=== PATIENT | female | born 1975 | race Caucasian/White ===

== ENCOUNTER 2016-10-03 10:53 | Inpatient (IN) | payer OTHER ==
[2016-10-03 11:53] VITALS: BMI 21.5
--- NOTE | 2016-10-03 12:31 | HP ---
COWS - Scale Resting Pulse: 0= ME 80 or Below Sweatin= Chills/Flushing Restless Observation: 3= Extraneous Movement Pupil Size: 2= Moderately Dilated Bone or Joint Aches: 4=Acute Joint/Muscle Pain Runny Nose/ Eye Tearin= None GI Upset > 30mins: 0= None Tremor Observation: 1= Tremor [place], Not Seen Yawning Observation: 2= >3x During Session Anxiety or Irritability: 2=Irritable/Anxious Goose Flesh Skin: 0=Smooth Skin COWS Score: 15 Admission ROS S - HPI Chief Complaint: DETOX TX FOR HEROIN DEPENDENCE Allergies/Adverse Reactions: Allergies Allergy/AdvReac Type Severity Reaction Status Date / Time Penicillins Allergy Severe Difficulty Verified 10/03/16 13:17 Breathing tree nut Allergy Verified 10/03/16 13:17 History of Present Illness: 41 Y/O FEMALE WITH A HX OF HEROIN AND MARIJUANA DEPENDENCE SEEKING DETOX TX Exam Limitations: No Limitations - Ebola screening Have you traveled outside of the country in the last 21 days: No Have you had contact with anyone from an Ebola affected area: No Have you been sick,other than usual withdrawal symptoms: No Do you have a fever: No - Review of Systems Constitutional: Loss of Appetite, Changes in sleep, Unintentional Wgt. 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).), Tearing, Nose Congestion Respiratory: reports: Shortness of Breath (HX ASTHMA), Wheezing Cardiac: reports: Lightheadedness GI: reports: Constipated, Diarrhea, Nausea, Poor Appetite, Poor Fluid Intake, Vomiting, Abdominal cramping : reports: No Symptoms Reported Musculoskeletal: reports: Back Pain, Joint Pain, Muscle Pain Integumentary: reports: No Symptoms Reported Neuro: reports: Numbness, Tingling, Dizziness Endocrine: reports: No Symptoms Reported Hematology: reports: Anemia (ON TX WITH IRON SUPPLEMENT TWICE A DAY) Psychiatric: reports: Orientated x3, Anxious Other Systems: Reviewed and Negative Patient History - Patient Medical History Hx Anemia: Yes Hx Asthma: Yes Hx Cardiac Disorders: No Hx Hypertension: No Hx Hypercholesterolemia: No HX Cerebrovascular Accident: No Hx Seizures: No Hx Diabetes: No Hx Gastrointestinal Disorders: No Hx Genitourinary Disorders: No Hx Sexually Transmitted Disorders: No Hx Renal Disease (ESRD): No Hx Thyroid Disease: Yes (HYPERACTIVE THYROID AND A NODULE IN THROAT.) Hx Human Immunodeficiency Virus (HIV): No (NEGATIVE HX) Hx Hepatitis C: No Hx Depression: Yes (NO MED) Hx Suicide Attempt: Yes ("SLIT MY WRIST"-01/2012;DENIES CURRENT S/I.) Hx Bipolar Disorder: Yes Hx Schizophrenia: Yes - Patient Surgical History Past Surgical History: No - PPD History Previous Implant?: Yes Documented Results: Negative w/o proof Implanted On Prior R Admission?: No PPD to be Administered?: Yes - Reproductive History Patient is a Female of Child Bearing Age (11 -55 yrs old): Yes Last Menstrual Period: 09/07/16 Patient : No - Smoking Cessation Smoking history: Current some day smoker Have you smoked in the past 12 months: Yes Aproximately how many cigarettes per day: 20 Hx Chewing Tobacco Use: No Initiated information on smoking cessation: Yes 'Breaking Loose' booklet given: 10/03/16 - Substance & Tx. History Hx Alcohol Use: Yes (SOCIAL DRINKER TWCE A YEAR) Hx Substance Use: Yes (HEROIN/MARIJUANA) Substance Use Type: Heroin, Marijuana, Tranquilizers ("TOOK IT LAST TWO DAYS TO RELAX". OTHERWISE DON'T USE BENZOS.) Hx Substance Use Treatment: Yes ([facility] DETOX) - Substances Abused Heroin Route: Inhalation Frequency: Daily Amount used: 1 BUNDLE Age of first use: 38 Date of Last Use: 10/03/16 Marijuana/Hashish Route: Smoking Frequency: 3-6 times per week (3X/WEEK) Amount used: 2 PUFFS Age of first use: 19 Date of Last Use: 10/02/16 Family Disease History - Family Disease History Family History: Unable to Obtain (ADOPTED) Admission Physical Exam [facility] - Vital Signs Vital Signs: Vital Signs - 24 hr 10/03/16 11:45 Temperature 96.8 F L Pulse Rate 71 Respiratory 20 Rate Blood Pressure 112/63 - Physical General Appearance: Yes: Mild Distress, Irritable, Anxious HEENTM: Yes: EOMI, Normocephalic, CASSANDRA, Pharynx Normal Respiratory: Yes: Chest Non-Tender, Lungs Clear, Normal Breath Sounds, No Respiratory Distress Neck: Yes: Supple, Trachea in good position, Other (LUMP ON RIGHT SIDE OF NECK( PT STATES HX THYROIN NODULE AND WILL F/U WITH BIOPSY WITH HER PMD)) Breast: Yes: Breast Exam Deferred Cardiology: Yes: Regular Rhythm, Regular Rate, S1, S2 Abdominal: Yes: Normal Bowel Sounds, Non Tender, Flat, Soft Genitourinary: Yes: Other (N/C) Musculoskeletal: Yes: full range of Motion, Gait Steady Extremities: Yes: Normal Range of Motion, Non-Tender Neurological: Yes: roast master II-XII NML intact, Fully Oriented, Alert, Motor Strength 5/5 Integumentary: Yes: Dry, Warm Lymphatic: Yes: Within Normal Limits - Diagnostic (1) Opioid dependence with withdrawal Current Visit: Yes Status: Acute (2) Cannabis dependence, uncomplicated Current Visit: Yes Status: Acute (3) Hyperthyroidism Current Visit: Yes Status: Chronic (4) Thyroid nodule Current Visit: Yes Status: Chronic Comment: PT STATES SHE IS TO F/U WITH REPEAT BIOPSY WITH PMD IN FUTURE. PT STATES HAS HAD IT FOR 13 YRS. "FIRST BIOPSY WAS NEGATIVE" Cleared for Admission [facility] - Detox or Rehab [facility] Level of Care: Medically Managed Detox Regimen/Protocol: Methadone [facility] Breath Alcohol Content Breath Alcohol Content: 0 Urine Pregancy Test - Result Urine Test Results: Negative- NO Line Present Urine Drug Screen - Results Drug Screen Negative: No Urine Drug Screen Results: THC-Marijuana, OPI-Opiates, BZO-Benzodiazepines
[2016-10-03] MEDS ORDERED: diphenhydrAMINE HCL 50 MG CAPSULE PO PRN (12:56)
[2016-10-03] MEDS ORDERED: guaiFENesin/D-METHORPHAN HB 10 ML UNIT-DOSE CUPS PO PRN (12:56)
[2016-10-03] MEDS ORDERED: MAGNESIUM CITRATE 300 ML BOTTLE PO PRN (12:56)
[2016-10-03] MEDS ORDERED: MAG HYDROX/AL HYDROX/SIMETH 30 ML UNIT-DOSE CUP PO PRN (12:56)
[2016-10-03] MEDS ORDERED: MAGNESIUM HYDROX 2400MG/30ML ORAL SUSPENSION 30 ML CUP PO PRN (12:56)
[2016-10-03] MEDS ORDERED: IBUPROFEN 400 MG TABLET (FP) PO PRN (12:56)
[2016-10-03] MEDS ORDERED: ACETAMINOPHEN 325 MG TABLET (FP) PO PRN (12:56)
[2016-10-03] MEDS ORDERED: LOPERAMIDE HCL 2 MG CAPSULE PO PRN (12:56)
[2016-10-03] MEDS ORDERED: MENTHOL/PHENOL 1 EACH UD MM PRN (12:56)
[2016-10-03] MEDS ORDERED: P-EPHED 60MG/TRIPROLIDI 2.5MG TABLET PO PRN (12:56)
[2016-10-03] MEDS ORDERED: FLUCONAZOLE 50 MG TABLET PO ONE (13:39)
[2016-10-03] MEDS ORDERED: METHADONE HCL 10 MG TABLET (FOR DETOX USE ONLY) PO ONE ×2 (13:43→23:00)
[2016-10-03] MEDS: diazePAM 5 MG TABLET PO PRN ×2 (14:57→22:37)
[2016-10-03] MEDS: BUDESONIDE/FORMETEROL FUMARATE 80/4.5 mcg INHALER IH SCH ×2 (15:08→22:46)
--- NOTE | 2016-10-03 15:55 | CONSULT ---
[facility] Psychiatric Consult - Data Date of interview: 10/03/16 Admission source: [facility] Identifying data: This is 41 years old female with psychiatric hospitalization history [id number] with: Alcohol, Cannabis, Heroin, Nicotine Substance Abuse History: - Smoking Cessation. Smoking history: Current some day smoker. Have you smoked in the past 12 months: Yes. Aproximately how many cigarettes per day: 20. Hx Chewing Tobacco Use: No. Initiated information on smoking cessation: Yes. 'Breaking Loose' booklet given: 10/03/16. - Substance & Tx. History. Hx Alcohol Use: Yes (SOCIAL DRINKER TWCE A YEAR). Hx Substance Use: Yes (HEROIN/MARIJUANA). Substance Use Type: Heroin, Marijuana, Tranquilizers ("TOOK IT LAST TWO DAYS TO RELAX". OTHERWISE DON'T USE BENZOS.). Hx Substance Use Treatment: Yes ([facility] DETOX). - Substances Abused. Heroin. Route: Inhalation. Frequency: Daily. Amount used: 1 BUNDLE. Age of first use: 38. Date of Last Use: 10/03/16. Marijuana/Hashish. Route: Smoking. Frequency: 3-6 times per week (3X/WEEK). Amount used: 2 PUFFS. Age of first use: 19. Date of Last Use: 10/02/16 Medical History: Hyperthyroiditis Psychiatric History: Patient reports psychiatric hospitalization on 2011 at [facility] after sucidal qattempt, reports no suicidal history since then, reports insomnia, reports taking prior to admission: Ambien 10mg po qhs Physical/Sexual Abuse/Trauma History: Denies Additional Comment: Ambien 10mg po qhs Mental Status Exam - Mental Status Exam Alert and Oriented to: Person Cognitive Function: Fair Patient Appearance: Well Groomed Mood: Apprehensive Affect: Mood Congruent Patient Behavior: Cooperative Speech Pattern: Appropriate Voice Loudness: Mildly Soft/Quiet Thought Process: Goal Oriented Thought Disorder: Being Controlled Hallucinations: Denies Suicidal Ideation: Denies Homicidal Ideation: Denies Insight/Judgement: Fair Sleep: Difficulty falling asleep Appetite: Fair Muscle strength/Tone: Normal Gait/Station: Normal Additional Comments: Ambien 10mg po qhs Psychiatric Findings - Problem List ([place] 1, 2,3) (1) Cannabis dependence, uncomplicated Current Visit: Yes Status: Acute (2) Opioid dependence with withdrawal Current Visit: Yes Status: Acute (3) Alcohol dependence Current Visit: Yes Status: Acute (4) Drug-induced mood disorder Current Visit: Yes Status: Acute - Initial Treatment Plan Initial Treatment Plan: Ambien 10mg po qhs
[2016-10-03 16:30] LABS: URINE APPEARANCE CLOUDY; URINE BILIRUBIN NEGATIVE (NEGATIVE); URINE BLOOD NEGATIVE (NEGATIVE); URINE COLOR YELLOW; URINE GLUCOSE (UA) NEGATIVE (NEGATIVE); URINE KETONE NEGATIVE (NEGATIVE); URINE NITRITE NEGATIVE (NEGATIVE); URINE PROTEIN NEGATIVE (NEGATIVE); URINE UROBILINOGEN NEGATIVE E.U./dl (0.2-1.0)
[2016-10-03 16:38] LABS: URINE LEUK ESTERASE TRACE (NEGATIVE)
[2016-10-03 16:41] LABS: URINE BACTERIA RARE /hpf (NONE SEEN); URINE HYALINE CAST 6 /lpf; URINE MUCUS MANY; URINE RBC 3 /hpf (0-3); URINE WBC 7 /hpf (3-5)
--- NOTE | 2016-10-03 17:48 | PN ---
[facility] Progress Note Note: Psychiatry Attending's note : Called by pharmacy to modify order for Ambien. No standing order for Ambien as per Yasmine's guidelines. Dr Baum's admission note is appreciated.Order seen. Intervention : .Discontinue ambien 10 mg po hs. .Ambien 10 mg po hs prn. .Staff and patient made aware.
[2016-10-03 18:46] LABS: HIV 1 & 2 AB NEGATIVE; HIV 1 AGp24 NEGATIVE
[2016-10-03] MEDS ORDERED: ZOLPIDEM TARTRATE 5 MG TABLET PO SCH (22:00)
[2016-10-03] MEDS: ZOLPIDEM TARTRATE 5 MG TABLET PO PRN (22:38)
[2016-10-03] MEDS: MONTELUKAST NA 10 MG TABLET PO SCH (22:38)
[2016-10-03] MEDS: VARENICLINE TARTRATE 1 MG TAB PO SCH (22:39)
[2016-10-03] MEDS: ALBUTEROL SO4 6.7 GM HFA INHALER IH PRN (22:46)
[2016-10-03] MEDS: THIAMINE HCL 100 MG TABLET (FP) PO SCH (23:12)
[2016-10-04] MEDS: diazePAM 5 MG TABLET PO PRN ×2 (08:40→22:27)
[2016-10-04] MEDS: ALBUTEROL SO4 6.7 GM HFA INHALER IH PRN ×2 (08:46→22:28)
[2016-10-04 09:50] LABS: MCH 32.5 pg (25.7-33.7); MCHC 34.6 g/dl (32.0-36.0); MEAN CELL VOLUME 93.9 fl (80-96); MEAN PLT VOLUME 11.4 fl (7.5-11.1); RDW 13.4 % (11.6-15.6)
[2016-10-04] MEDS ORDERED: METHADONE HCL 10 MG TABLET (FOR DETOX USE ONLY) PO ONE (10:00)
[2016-10-04] MEDS: PRENATAL VITAMINS W/ FOLIC ACID TABLET (FP) PO SCH (10:24)
[2016-10-04] MEDS: hydrOXYzine PAMOATE 25 MG CAPSULE (FP) PO PRN (10:25)
[2016-10-04] MEDS: VARENICLINE TARTRATE 1 MG TAB PO SCH ×2 (10:25→22:27)
[2016-10-04] MEDS: BUDESONIDE/FORMETEROL FUMARATE 80/4.5 mcg INHALER IH SCH ×2 (10:25→22:26)
[2016-10-04 10:28] LABS: ALBUMIN 4.1 g/dl (3.4-5.0); ALK PHOS 66 U/L (45-117); ANION GAP 11 (8-16); BILIRUBIN,TOTAL 0.3 mg/dL (0.2-1.0); CALCIUM 8.9 mg/dL (8.5-10.1); CO2 24 mmol/L (21-32); CREATININE 0.8 mg/dL (0.55-1.02); GLUCOSE,RANDOM 109 mg/dL (74-106); SGOT/AST 18 U/L (15-37); SGPT/ALT 18 U/L (12-78); TOT PROT 7.1 g/dl (6.4-8.2)
--- NOTE | 2016-10-04 11:01 | PN ---
[facility] COWS - Scale Resting Pulse: 0= ID 80 or Below Sweatin=Flushed/Facial Moisture Restless Observation: 1= Difficult to Sit Still Pupil Size: 0= Normal to Room Light Bone or Joint Aches: 2= Severe Diffuse Aches Runny Nose/ Eye Tearin= Nasal Congestion GI Upset > 30mins: 1= Stomach Cramp Tremor Observation of Outstretched Hands: 2= Slight Tremor Visible Yawning Observation: 2= >3x During Session Anxiety or Irritability: 2=Irritable/Anxious Goose Flesh Skin: 0=Smooth Skin COWS Score: 13 [facility] Progress Note (SOAP) Subjective: agitation anxiety sweats shakes headache Objective: 10/04/16 11:00 Vital Signs Temperature 95.2 F L 10/04/16 09:41 Pulse Rate 80 10/04/16 09:41 Respiratory Rate 16 10/04/16 09:41 Blood Pressure 126/73 10/04/16 09:41 O2 Sat by Pulse Oximetry (%) Laboratory Tests 10/03/16 10/03/16 10/04/16 15:00 15:00 06:00 WBC 5.0 RBC 4.08 Hgb 13.3 Hct 38.3 MCV 93.9 MCHC 34.6 RDW 13.4 MPV 11.4 H Sodium Potassium Chloride Carbon Dioxide Anion Gap BUN Creatinine Creat Clearance w eGFR Random Glucose Calcium Total Bilirubin AST ALT Alkaline Phosphatase Total Protein Albumin Urine Color Yellow Urine Appearance Cloudy Urine pH 6.0 Ur Specific [place] 1.018 Urine Protein Negative Urine Glucose (UA) Negative Urine Ketones Negative Urine Blood Negative Urine Nitrite Negative Urine Bilirubin Negative Urine Urobilinogen Negative Ur Leukocyte Esterase Trace H Urine RBC 3 Urine WBC 7 Ur Epithelial Cells Moderate Urine Bacteria Rare Hyaline Casts 6 Urine Mucus Many HIV 1&2 Antibody Screen Negative HIV P24 Antigen Negative 10/04/16 06:00 WBC RBC Hgb Hct MCV MCHC RDW MPV Sodium 142 Potassium 3.9 Chloride 107 Carbon Dioxide 24 Anion Gap 11 BUN 11 Creatinine 0.8 Creat Clearance w eGFR > 60 Random Glucose 109 H Calcium 8.9 Total Bilirubin 0.3 AST 18 ALT 18 Alkaline Phosphatase 66 Total Protein 7.1 Albumin 4.1 Urine Color Urine Appearance Urine pH Ur Specific [place] Urine Protein Urine Glucose (UA) Urine Ketones Urine Blood Urine Nitrite Urine Bilirubin Urine Urobilinogen Ur Leukocyte Esterase Urine RBC Urine WBC Ur Epithelial Cells Urine Bacteria Hyaline Casts Urine Mucus HIV 1&2 Antibody Screen HIV P24 Antigen awake/alert ambulating no acute distress Assessment: 10/04/16 11:00 withdrawal sx Plan: continue detox increase fluids
[2016-10-04 12:05] LABS: PLATELET COUNT 130 K/MM3 (134-434)
[2016-10-04] MEDS: THIAMINE HCL 100 MG TABLET (FP) PO SCH (22:26)
[2016-10-04] MEDS: ZOLPIDEM TARTRATE 5 MG TABLET PO PRN (22:27)
[2016-10-04] MEDS: MONTELUKAST NA 10 MG TABLET PO SCH (22:27)
--- NOTE | 2016-10-04 23:36 | EKG ---
Test Reason : Blood Pressure : / mmHG Vent. Rate : 060 BPM Atrial Rate : 060 BPM P-R Int : 200 ms QRS Dur : 098 ms QT Int : 422 ms P-R-T Axes : 069 066 072 degrees QTc Int : 422 ms NORMAL SINUS RHYTHM NORMAL ECG NO PREVIOUS ECGS AVAILABLE Confirmed by MCKINLEY CASILLAS MD ([id number]) on 10/04/2016 11:35:59 PM Referred By: Confirmed By:MCKINLEY CASILLAS MD
[2016-10-05] MEDS ORDERED: METHADONE HCL 5 MG TABLET (FOR DETOX USE ONLY) PO ONE (10:00)
[2016-10-05] MEDS: VARENICLINE TARTRATE 1 MG TAB PO SCH ×2 (10:06→22:25)
[2016-10-05] MEDS: PRENATAL VITAMINS W/ FOLIC ACID TABLET (FP) PO SCH (10:06)
[2016-10-05] MEDS: BUDESONIDE/FORMETEROL FUMARATE 80/4.5 mcg INHALER IH SCH ×2 (10:07→22:05)
--- NOTE | 2016-10-05 11:47 | PN ---
[facility] CIWA - CIWA Score Nausea/Vomitin Muscle Tremors: 2 Anxiety: 3 Agitation: 2 Paroxysmal Sweats: 3 Orientation: 0-Oriented Tacttile Disturbances: 1-Very Mild Itch/Numbness Auditory Disturbances: 0-None Visual Disturbances: 0-None Headache: 0-None Present CIWA-Ar Total Score: 13 [facility] Progress Note (SOAP) Subjective: interrupted sleep, sweats, lbp Objective: 10/05/16 11:47 Laboratory Tests 10/03/16 10/03/16 10/04/16 15:00 15:00 06:00 WBC 5.0 RBC 4.08 Hgb 13.3 Hct 38.3 MCV 93.9 MCHC 34.6 RDW 13.4 Plt Count 130 L MPV 11.4 H Platelet Comment Mod giant plts Sodium Potassium Chloride Carbon Dioxide Anion Gap BUN Creatinine Creat Clearance w eGFR Random Glucose Calcium Total Bilirubin AST ALT Alkaline Phosphatase Total Protein Albumin Urine Color Yellow Urine Appearance Cloudy Urine pH 6.0 Ur Specific [place] 1.018 Urine Protein Negative Urine Glucose (UA) Negative Urine Ketones Negative Urine Blood Negative Urine Nitrite Negative Urine Bilirubin Negative Urine Urobilinogen Negative Ur Leukocyte Esterase Trace H Urine RBC 3 Urine WBC 7 Ur Epithelial Cells Moderate Urine Bacteria Rare Hyaline Casts 6 Urine Mucus Many RPR Titer HIV 1&2 Antibody Screen Negative HIV P24 Antigen Negative 10/04/16 10/04/16 06:00 06:00 WBC RBC Hgb Hct MCV MCHC RDW Plt Count MPV Platelet Comment Sodium 142 Potassium 3.9 Chloride 107 Carbon Dioxide 24 Anion Gap 11 BUN 11 Creatinine 0.8 Creat Clearance w eGFR > 60 Random Glucose 109 H Calcium 8.9 Total Bilirubin 0.3 AST 18 ALT 18 Alkaline Phosphatase 66 Total Protein 7.1 Albumin 4.1 Urine Color Urine Appearance Urine pH Ur Specific [place] Urine Protein Urine Glucose (UA) Urine Ketones Urine Blood Urine Nitrite Urine Bilirubin Urine Urobilinogen Ur Leukocyte Esterase Urine RBC Urine WBC Ur Epithelial Cells Urine Bacteria Hyaline Casts Urine Mucus RPR Titer Nonreactive HIV 1&2 Antibody Screen HIV P24 Antigen pt aox3 in nad ambulating 10/05/16 11:49 Assessment: 10/05/16 11:47 withdrawl sx's 10/05/16 11:49 lbp Plan: cont. detox increase fluids flexeril tid/prn motrin prn
[2016-10-05] MEDS: diazePAM 5 MG TABLET PO PRN (15:53)
[2016-10-05] MEDS: MONTELUKAST NA 10 MG TABLET PO SCH (22:06)
[2016-10-05] MEDS: THIAMINE HCL 100 MG TABLET (FP) PO SCH (22:06)
[2016-10-05] MEDS: CYCLOBENZAPRINE HCL 10 MG TABLET (FP) PO PRN (22:06)
[2016-10-06] MEDS: hydrOXYzine PAMOATE 25 MG CAPSULE (FP) PO PRN ×3 (08:26→22:36)
[2016-10-06] MEDS ORDERED: METHADONE HCL 5 MG TABLET (FOR DETOX USE ONLY) PO ONE (10:00)
[2016-10-06] MEDS: PRENATAL VITAMINS W/ FOLIC ACID TABLET (FP) PO SCH (10:16)
[2016-10-06] MEDS: BUDESONIDE/FORMETEROL FUMARATE 80/4.5 mcg INHALER IH SCH ×2 (10:17→23:33)
[2016-10-06] MEDS: diazePAM 5 MG TABLET PO PRN (10:18)
[2016-10-06] MEDS: VARENICLINE TARTRATE 1 MG TAB PO SCH ×2 (10:18→22:34)
--- NOTE | 2016-10-06 11:25 | PN ---
S Progress Note (SOAP) Subjective: Sweating, Tremors, Body aches, Interrupted Sleep, Constipation (Pt, reports that Milk of Magnesia has been ineffective). Objective: 10/06/16 11:24 Vital Signs Temperature 97.7 F 10/06/16 09:39 Pulse Rate 102 H 10/06/16 09:39 Respiratory Rate 18 10/06/16 09:39 Blood Pressure 113/72 10/06/16 09:39 O2 Sat by Pulse Oximetry (%) Laboratory Last Values WBC 5.0 K/mm3 (4.0-10.0) 10/04/16 06:00 RBC 4.08 M/mm3 (3.60-5.2) 10/04/16 06:00 Hgb 13.3 GM/dL (10.7-15.3) 10/04/16 06:00 Hct 38.3 % (32.4-45.2) 10/04/16 06:00 MCV 93.9 fl (80-96) 10/04/16 06:00 MCHC 34.6 g/dl (32.0-36.0) 10/04/16 06:00 RDW 13.4 % (11.6-15.6) 10/04/16 06:00 Plt Count 130 K/MM3 (134-434) L 10/04/16 06:00 MPV 11.4 fl (7.5-11.1) H 10/04/16 06:00 Platelet Comment Mod giant plts 10/04/16 06:00 Sodium 142 mmol/L (136-145) 10/04/16 06:00 Potassium 3.9 mmol/L (3.5-5.1) 10/04/16 06:00 Chloride 107 mmol/L (98-107) 10/04/16 06:00 Carbon Dioxide 24 mmol/L (21-32) 10/04/16 06:00 Anion Gap 11 (8-16) 10/04/16 06:00 BUN 11 mg/dL (7-18) 10/04/16 06:00 Creatinine 0.8 mg/dL (0.55-1.02) 10/04/16 06:00 Creat Clearance w eGFR > 60 (>60) 10/04/16 06:00 Random Glucose 109 mg/dL (74-106) H 10/04/16 06:00 Calcium 8.9 mg/dL (8.5-10.1) 10/04/16 06:00 Total Bilirubin 0.3 mg/dL (0.2-1.0) 10/04/16 06:00 AST 18 U/L (15-37) 10/04/16 06:00 ALT 18 U/L (12-78) 10/04/16 06:00 Alkaline Phosphatase 66 U/L (45-117) 10/04/16 06:00 Total Protein 7.1 g/dl (6.4-8.2) 10/04/16 06:00 Albumin 4.1 g/dl (3.4-5.0) 10/04/16 06:00 Urine Color Yellow 10/03/16 15:00 Urine Appearance Cloudy 10/03/16 15:00 Urine pH 6.0 (5.0-8.0) 10/03/16 15:00 Ur Specific [place] 1.018 (1.001-1.035) 10/03/16 15:00 Urine Protein Negative (NEGATIVE) 10/03/16 15:00 Urine Glucose (UA) Negative (NEGATIVE) 10/03/16 15:00 Urine Ketones Negative (NEGATIVE) 10/03/16 15:00 Urine Blood Negative (NEGATIVE) 10/03/16 15:00 Urine Nitrite Negative (NEGATIVE) 10/03/16 15:00 Urine Bilirubin Negative (NEGATIVE) 10/03/16 15:00 Urine Urobilinogen Negative E.U./dl (0.2-1.0) 10/03/16 15:00 Ur Leukocyte Esterase Trace (NEGATIVE) H 10/03/16 15:00 Urine RBC 3 /hpf (0-3) 10/03/16 15:00 Urine WBC 7 /hpf (3-5) 10/03/16 15:00 Ur Epithelial Cells Moderate /hpf (FEW) 10/03/16 15:00 Urine Bacteria Rare /hpf (NONE SEEN) 10/03/16 15:00 Hyaline Casts 6 /lpf 10/03/16 15:00 Urine Mucus Many 10/03/16 15:00 RPR Titer Nonreactive (NONREACTIVE) 10/04/16 06:00 HIV 1&2 Antibody Screen Negative 10/03/16 15:00 HIV P24 Antigen Negative 10/03/16 15:00 LABS NOTED. Assessment: 10/06/16 11:25 WITHDRAWAL SYMPTOMS. Plan: CONTINUE DETOX. COLACE 100 MG PO BID FOR CONSTIPATION. ADVISED PT. TO FOLLOW-UP WITH [facility] AFTER DISCHARGE FROM DETOX FOR GENERAL MEDICAL ASSESSMENT AND FOR LAB ABNORMALITIES INCLUDING LOW PLATELET COUNT.
[2016-10-06] MEDS: CYCLOBENZAPRINE HCL 10 MG TABLET (FP) PO PRN ×2 (12:22→22:34)
[2016-10-06] MEDS: DOCUSATE SODIUM 100 MG CAPSULE (FP) PO SCH ×2 (12:22→22:34)
[2016-10-06] MEDS: ALBUTEROL SO4 6.7 GM HFA INHALER IH PRN (20:59)
[2016-10-06] MEDS: THIAMINE HCL 100 MG TABLET (FP) PO SCH (22:34)
[2016-10-06] MEDS: MONTELUKAST NA 10 MG TABLET PO SCH (22:34)
[2016-10-07] MEDS: ALBUTEROL SO4 6.7 GM HFA INHALER IH PRN ×2 (08:38→19:15)
[2016-10-07] MEDS ORDERED: METHADONE HCL 10 MG TABLET (FOR DETOX USE ONLY) PO ONE (10:00)
[2016-10-07] MEDS: VARENICLINE TARTRATE 1 MG TAB PO SCH ×2 (10:34→22:44)
[2016-10-07] MEDS: DOCUSATE SODIUM 100 MG CAPSULE (FP) PO SCH ×2 (10:34→22:45)
[2016-10-07] MEDS: PRENATAL VITAMINS W/ FOLIC ACID TABLET (FP) PO SCH (10:34)
[2016-10-07] MEDS: BUDESONIDE/FORMETEROL FUMARATE 80/4.5 mcg INHALER IH SCH ×2 (10:36→22:45)
--- NOTE | 2016-10-07 10:45 | PN ---
[facility] Progress Note (SOAP) Subjective: POOR SLEEP, ACHY, ANXIOUS Objective: 10/07/16 10:45 Laboratory Tests 10/03/16 10/03/16 10/04/16 15:00 15:00 06:00 WBC 5.0 RBC 4.08 Hgb 13.3 Hct 38.3 MCV 93.9 MCHC 34.6 RDW 13.4 Plt Count 130 L MPV 11.4 H Platelet Comment Mod giant plts Sodium Potassium Chloride Carbon Dioxide Anion Gap BUN Creatinine Creat Clearance w eGFR Random Glucose Calcium Total Bilirubin AST ALT Alkaline Phosphatase Total Protein Albumin Urine Color Yellow Urine Appearance Cloudy Urine pH 6.0 Ur Specific [place] 1.018 Urine Protein Negative Urine Glucose (UA) Negative Urine Ketones Negative Urine Blood Negative Urine Nitrite Negative Urine Bilirubin Negative Urine Urobilinogen Negative Ur Leukocyte Esterase Trace H Urine RBC 3 Urine WBC 7 Ur Epithelial Cells Moderate Urine Bacteria Rare Hyaline Casts 6 Urine Mucus Many RPR Titer HIV 1&2 Antibody Screen Negative HIV P24 Antigen Negative 10/04/16 10/04/16 06:00 06:00 WBC RBC Hgb Hct MCV MCHC RDW Plt Count MPV Platelet Comment Sodium 142 Potassium 3.9 Chloride 107 Carbon Dioxide 24 Anion Gap 11 BUN 11 Creatinine 0.8 Creat Clearance w eGFR > 60 Random Glucose 109 H Calcium 8.9 Total Bilirubin 0.3 AST 18 ALT 18 Alkaline Phosphatase 66 Total Protein 7.1 Albumin 4.1 Urine Color Urine Appearance Urine pH Ur Specific [place] Urine Protein Urine Glucose (UA) Urine Ketones Urine Blood Urine Nitrite Urine Bilirubin Urine Urobilinogen Ur Leukocyte Esterase Urine RBC Urine WBC Ur Epithelial Cells Urine Bacteria Hyaline Casts Urine Mucus RPR Titer Nonreactive HIV 1&2 Antibody Screen HIV P24 Antigen Vital Signs - 24 hr 10/06/16 10/06/16 10/06/16 15:23 20:28 23:37 Temperature 98.1 F 98.2 F 97.5 F L Pulse Rate 82 81 95 H Respiratory 18 250 H 20 Rate Blood Pressure 112/63 99/60 98/61 10/07/16 10/07/16 10/07/16 00:30 03:30 06:00 Temperature 97.9 F Pulse Rate 78 Respiratory 18 18 18 Rate Blood Pressure 106/62 Assessment: 10/07/16 10:45 ONGOING WITHDRAWAL Plan: CONTINUE DETOX PROTOCOL
[2016-10-07] MEDS: MONTELUKAST NA 10 MG TABLET PO SCH (22:44)
[2016-10-07] MEDS: THIAMINE HCL 100 MG TABLET (FP) PO SCH (22:45)
[2016-10-08] MEDS ORDERED: METHADONE HCL 5 MG TABLET (FOR DETOX USE ONLY) PO ONE (06:00)
--- NOTE | 2016-10-08 08:15 | PN ---
S Progress Note (SOAP) Subjective: alert,irritable,anxious,interrupted sleep Objective: 10/08/16 08:15 Vital Signs Temperature 96.6 F L 10/08/16 06:53 Pulse Rate 74 10/08/16 06:53 Respiratory Rate 18 10/08/16 06:53 Blood Pressure 113/69 10/08/16 06:53 O2 Sat by Pulse Oximetry (%) Assessment: 10/08/16 08:15 withdrawal symptom Plan: continue detox
--- NOTE | 2016-10-08 08:27 | PN ---
S Progress Note Note: ALERT,PATIENT IS STABLE TO BE TRANSFERRED TO REHAB
--- NOTE | 2016-10-08 08:30 | DS ---
[facility] Detox Discharge Summary Admission Date: 10/03/16 Discharge Date: 10/08/16 - History Present History: Cannabis Dependence, Opioid Dependence Additional Comments: TRANSFER TO REHAB FOR CONTINUING OF CARE Pertinent Past History: ASTHMA THYROID NODULE ANEMIA BY HISTORY - Physical Exam Results Vital Signs: Vital Signs Temperature 96.6 F L 10/08/16 06:53 Pulse Rate 74 10/08/16 06:53 Respiratory Rate 18 10/08/16 06:53 Blood Pressure 113/69 10/08/16 06:53 O2 Sat by Pulse Oximetry (%) Pertinent Admission Physical Exam Findings: WITHDRAWAL SYMPTOM - Treatment Hospital Course: Detox Protocol Followed, Detoxed Safely, Responded well, Discharged Condition Good, Rehab Referral Accepted Patient has Accepted a Rehab Referral to: [facility] - Medication Discharge Medications: Ambulatory Orders Albuterol Sulfate Inhaler - [Ventolin Hfa Inhaler -] 2 inh PO Q4H PRN 10/03/16 Cholecalciferol (Vitamin D3) [Vitamin D3 -] 50,000 unit PO WEEKLY 10/03/16 Ferrous Sulfate [Feosol] 325 mg PO BID 10/03/16 Fluticasone/Salmeterol [Advair Hfa 115-21 Mcg Inhaler] 2 inh PO BID 10/03/16 Montelukast Na [Singulair -] 10 mg PO HS 10/03/16 Varenicline Tartrate [Chantix] 1 mg PO BID 10/03/16 Zolpidem Tartrate [Ambien] 10 mg PO HS 10/03/16 Zolpidem Tartrate [Ambien] 10 mg PO HS #14 tablet MDD 10 10/03/16 - AMA Did Patient Leave Against Medical Advice: No
[2016-10-08] MEDS: BUDESONIDE/FORMETEROL FUMARATE 80/4.5 mcg INHALER IH SCH ×2 (11:14→21:47)
[2016-10-08] MEDS: DOCUSATE SODIUM 100 MG CAPSULE (FP) PO SCH ×2 (11:14→21:45)
[2016-10-08] MEDS: PRENATAL VITAMINS W/ FOLIC ACID TABLET (FP) PO SCH (11:14)
[2016-10-08] MEDS: VARENICLINE TARTRATE 1 MG TAB PO SCH ×2 (11:14→21:44)
[2016-10-08] MEDS: hydrOXYzine PAMOATE 25 MG CAPSULE (FP) PO PRN ×3 (11:17→21:44)
[2016-10-08] MEDS: MONTELUKAST NA 10 MG TABLET PO SCH (21:45)
[2016-10-08] MEDS: THIAMINE HCL 100 MG TABLET (FP) PO SCH (21:47)
[2016-10-09 06:37] VITALS: BP 104/70; PULSE 84; TEMP 98.2
[2016-10-09] MEDS: ALBUTEROL SO4 6.7 GM HFA INHALER IH PRN (08:29)
[2016-10-09] MEDS: hydrOXYzine PAMOATE 25 MG CAPSULE (FP) PO PRN (08:53)
[2016-10-09] MEDS: PRENATAL VITAMINS W/ FOLIC ACID TABLET (FP) PO SCH (10:12)
[2016-10-09] MEDS: DOCUSATE SODIUM 100 MG CAPSULE (FP) PO SCH (10:13)
[2016-10-09] MEDS: VARENICLINE TARTRATE 1 MG TAB PO SCH (10:13)
[2016-10-09] MEDS: BUDESONIDE/FORMETEROL FUMARATE 80/4.5 mcg INHALER IH SCH (10:14)
== END 2016-10-09 10:45 | disposition left against medical advice (07) | DRG 894 ==
LOC: YASAS 10:53 → Y6N 13:38 → Y3W 10-08 12:01
PROVIDERS: ADMIT Psychiatry & Neurology Psychiatry; ATTEND Psychiatry & Neurology Psychiatry
PROC: HZ42ZZZ Group Counseling for Substance Abuse Treatment, Cognitive-Behavioral (ICD-10-PCS; principal; 2016-10-09)
DX: F11.23 Opioid dependence with withdrawal (principal); F12.20 Cannabis dependence, uncomplicated; F17.210 Nicotine dependence, cigarettes, uncomplicated; F19.24 Other psychoactive substance dependence with psychoactive substance-induced mood disorder
CPT/HCPCS: 36415; 80053; 81003; 81015; 85027; 86593; 87389; 93005; 93010

== ENCOUNTER 2018-09-12 12:12 | Inpatient (IN) | payer OTHER ==
[2018-09-12 13:14] VITALS: BMI 23.1
--- NOTE | 2018-09-12 16:30 | HP ---
COWS - Scale Resting Pulse: 0= [place] 80 or Below Sweatin=Flushed/Facial Moisture Restless Observation: 3= Extraneous Movement Pupil Size: 0= Normal to Room Light (Pupils = 2 mm) Bone or Joint Aches: 2= Severe Diffuse Aches Runny Nose/ Eye Tearin= Nasal Congestion GI Upset > 30mins: 3= Vomiting/Diarrhea Tremor Observation: 4= Gross Tremor/Twitching Yawning Observation: 0= None Anxiety or Irritability: 2=Irritable/Anxious Goose Flesh Skin: 0=Smooth Skin COWS Score: 17 CIWA Score Nausea/Vomitin-Cont. Nausea/Vomiting Muscle Tremors: 4-Moderate,w/Arms Extend Anxiety: 1-Mildly Anxious Agitation: 4-Moderately Restless Paroxysmal Sweats: 3 (Facial moisture w/o beads) Orientation: 0-Oriented Tacttile Disturbances: 0-None Auditory Disturbances: 0-None Visual Disturbances: 0-None Headache: 0-None Present CIWA-Ar Total Score: 19 - Admission Criteria OAS Guidelines: Admission for Medically Managed Detox: Requires at least one of the followin. CIWA greater than 12 2. Seizures within the past 24 hours 3. Delirium tremens within the past 24 hours 4. Hallucinations within the past 24 hours 5. Acute intervention needed for co occurring medical disorder 6. Acute intervention needed for co occurring psychiatric disorder 7. Severe withdrawal that cannot be handled at a lower level of care (continued vomiting, continued diarrhea, abnormal vital signs) requiring intravenous medication and/or fluids 8. Patient presents the following: CIWA greater than 12 Admission Criteria Met: Admission criteria met Admission ROS [facility] Chief Complaint: Having alcohol and heroin withdrawal. Allergies/Adverse Reactions: Allergies Allergy/AdvReac Type Severity Reaction Status Date / Time Penicillins Allergy Severe Difficulty Verified 09/12/18 14:13 Breathing tree nut Allergy Severe Difficulty Verified 09/12/18 14:13 Breathing wheat Allergy Severe Difficulty Verified 09/12/18 14:13 Breathing History of Present Illness: I need to get clean off alcohol and drugs. Heroin use began at age 38. Alcohol use began at age 17. Klonopin use began at age 43. Recent smoking cessation - on Chantix Hx: Blackouts. Denies hx seizures or overdoses. Longest length of sobriety 2 years - approx [id number]) Hx: Asthma - last exacerbation 2 months ago. On medications. Congenital blindness (L) eye Hx: Hyperactive thyroid w/ a large thyroid nodule. Nodule x 14 years. States biopsy was negative. No on any thyroid medications. Hx: Depression: Denies thoughts of harming self or others/ Search Terms: Harper Guillaume, 1975 Search Date: 09/12/2018 04:29:09 PM The Drug Utilization Report below displays all of the controlled substance prescriptions, if any, that your patient has filled in the last twelve months. The information displayed on this report is compiled from pharmacy submissions to the Department, and accurately reflects the information as submitted by the pharmacies. This report was requested by: Martha Dyer | Reference #: [id number] Others' Prescriptions Patient Name: Harper Guillaume Date: 1975 Address: [address] [place] [address] Sex: Female Rx Written Rx Dispensed Drug Quantity Days Supply Prescriber Name 05/22/2018 05/22/2018 hydrocodone-acetaminophen 7.5-300 mg tablet Exam Limitations: No Limitations - Ebola screening Have you traveled outside of the country in the last 21 days: No Have you had contact with anyone from an Ebola affected area: No Have you been sick,other than usual withdrawal symptoms: No Do you have a fever: No - Review of Systems Constitutional: Diaphoresis, Changes in sleep (Difficulty falling and staying asleep) EENT: reports: Other (Blind in (L) eye since ) Respiratory: reports: No Symptoms reported Cardiac: reports: No Symptoms Reported GI: reports: Diarrhea (Watery, light brown), Nausea, Vomiting : reports: No Symptoms Reported Musculoskeletal: reports: Back Pain (Achy r/t withdrawal), Other (Muscle aching/ shaking) Integumentary: reports: No Symptoms Reported Neuro: reports: Tremors Endocrine: reports: Increased Thirst Hematology: reports: Anemia (Supposed to take iron) Psychiatric: reports: Judgement Intact, Orientated x3, Agitated, Anxious, Depressed (Denies thoughts of harming self or others) Patient History - Patient Medical History Hx Anemia: Yes Hx Asthma: Yes Hx Chronic Obstructive Pulmonary Disease (COPD): No Hx Cardiac Disorders: No Hx Hypertension: No Hx Hypercholesterolemia: No HX Cerebrovascular Accident: No Hx Seizures: No Hx Diabetes: No Hx Gastrointestinal Disorders: No Hx Genitourinary Disorders: No Hx Sexually Transmitted Disorders: Yes (unknown) Hx Renal Disease (ESRD): No Hx Thyroid Disease: Yes (HYPERACTIVE THYROID AND A NODULE IN THROAT.) Hx Human Immunodeficiency Virus (HIV): No (NEGATIVE HX) Hx Hepatitis C: No Hx Depression: Yes Hx Suicide Attempt: Yes (cut left wrist in 07/2017) Hx Bipolar Disorder: Yes Hx Schizophrenia: No - Patient Surgical History Past Surgical History: No Hx Neurologic Surgery: No Hx Cataract Extraction: No Hx Cardiac Surgery: No Hx Lung Surgery: No Hx Breast Surgery: No Hx Breast Biopsy: No Hx Abdominal Surgery: No Hx Appendectomy: No Hx Cholecystectomy: No Hx Genitourinary Surgery: No Hx Section: No Hx Orthopedic Surgery: No Anesthesia Reaction: No - PPD History Previous Implant?: Yes Documented Results: Negative w/proof Implanted On Prior [facility] Admission?: Yes Date: 10/05/16 Results: 0 mm PPD to be Administered?: Yes - Reproductive History Patient is a Female of Child Bearing Age (11 -55 yrs old): Yes Last Menstrual Period: 07/26/18 Patient : No - Smoking Cessation Smoking history: Former smoker Have you smoked in the past 12 months: Yes If you are a former smoker, when did you quit?: 06/2018 Hx Chewing Tobacco Use: No Initiated information on smoking cessation: Yes 'Breaking Loose' booklet given: 09/12/18 (On Chantix) - Substance & Tx. History Hx Alcohol Use: Yes Hx Substance Use: Yes Substance Use Type: Alcohol, Heroin, Opiates, Tranquilizers Hx Substance Use Treatment: Yes (detox, rehab) - Substances Abused Heroin Route: Inhalation Frequency: Daily Amount used: 10 bags Age of first use: 38 Date of Last Use: 09/12/18 Alcohol-vodka Route: Oral Frequency: Daily Amount used: 1 pt. Age of first use: 17 Date of Last Use: 09/11/18 Klonopin or Valium Route: Oral Frequency: Daily Amount used: 2 tabs. (Klonopin)/10-15 mg. (Valium) Age of first use: 43 Date of Last Use: 09/12/18 Admission Physical Exam [facility] - Vital Signs Vital Signs: Vital Signs - 24 hr 09/12/18 13:12 Temperature 96.8 F L Pulse Rate 73 Respiratory 18 Rate Blood Pressure 123/70 - Physical General Appearance: Yes: Appropriately Dressed, Moderate Distress, Tremorous, Sweating, Anxious HEENTM: Yes: EOMI, Hearing grossly Normal, Normocephalic, Normal Voice, CASSANDRA ( Pupils = 2 mm), Pharynx Normal, Tm's normal Respiratory: Yes: Lungs Clear, Normal Breath Sounds, No Respiratory Distress Neck: Yes: Supple, Mass (Firm mass (R) anterior trachea. Non-tender. No increased erythema/warmth.) Breast: Yes: Breast Exam Deferred Cardiology: Yes: Regular Rhythm, Regular Rate, S1, S2 Abdominal: Yes: Flat, Soft, Increased Bowel Sounds, Tenderness (LLQ tenderness upon palpation. 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 (5) Nicotine dependence in remission Current Visit: Yes Status: Acute Qualifiers: Nicotine product type: unspecified Qualified Code(s): F17.201 - Nicotine dependence, unspecified, in remission Comment: On Chantix (6) Blind left eye Current Visit: Yes Status: Chronic (7) Asthma Current Visit: Yes Status: Chronic Qualifiers: Asthma severity: unspecified severity Asthma persistence: unspecified Asthma complication type: uncomplicated Qualified Code(s): J45.909 - Unspecified asthma, uncomplicated Cleared for Admission [facility] - Detox or Rehab [facility] Level of Care: Medically Managed Detox Regimen/Protocol: Methadone/Librium [facility] Breath Alcohol Content Breath Alcohol Content: 0 Urine Pregancy Test - Result Urine Test Results: Negative- NO Line Present Urine Drug Screen - Results Drug Screen Negative: No Urine Drug Screen Results: OPI-Opiates, BZO-Benzodiazepines, MTD-Methadone, FEN- Fentanyl
[2018-09-12] MEDS ORDERED: MAGNESIUM CITRATE 300 ML BOTTLE PO PRN (17:44)
[2018-09-12] MEDS ORDERED: MAG HYDROX/AL HYDROX/SIMETH 30 ML UNIT-DOSE CUP PO PRN (17:44)
[2018-09-12] MEDS ORDERED: MAGNESIUM HYDROX 2400MG/30ML ORAL SUSPENSION 30 ML CUP PO PRN (17:44)
[2018-09-12] MEDS ORDERED: P-EPHED 60MG/TRIPROLIDI 2.5MG TABLET PO PRN (17:44)
[2018-09-12] MEDS ORDERED: chlordiazePOXIDE HCL 25 MG CAPSULE PO PRN (17:44)
[2018-09-12] MEDS ORDERED: ACETAMINOPHEN 325 MG TABLET (FP) PO PRN (17:44)
[2018-09-12] MEDS ORDERED: MENTHOL/PHENOL 1 EACH UD MM PRN (17:44)
[2018-09-12] MEDS ORDERED: LOPERAMIDE HCL 2 MG CAPSULE PO PRN (17:44)
[2018-09-12] MEDS ORDERED: IBUPROFEN 400 MG TABLET (FP) PO PRN (17:44)
[2018-09-12] MEDS ORDERED: guaiFENesin 200 MG/10 ML 10 ML UNIT-DOSE CUPS PO PRN (17:48)
[2018-09-12] MEDS ORDERED: METHADONE HCL 10 MG TABLET (FOR DETOX USE ONLY) PO ONE ×2 (18:15→23:00)
[2018-09-12] MEDS ORDERED: ALBUTEROL SO4 0.083% IH SOL 2.5 MG/3 ML VIAL.NEB. NEB PRN (19:03)
[2018-09-12] MEDS: BUDESONIDE/FORMETEROL FUMARATE 80/4.5 mcg INHALER IH SCH (22:13)
[2018-09-12] MEDS: THIAMINE HCL 100 MG TABLET (FP) PO SCH (22:13)
[2018-09-12] MEDS: VARENICLINE TARTRATE 1 MG TAB PO SCH (22:14)
[2018-09-12] MEDS: MONTELUKAST NA 10 MG TABLET PO SCH (22:14)
[2018-09-12] MEDS: chlordiazePOXIDE HCL 25 MG CAPSULE PO SCH (22:14)
[2018-09-12] MEDS: MELATONIN 5 MG TABLETS PO PRN (22:16)
[2018-09-13] MEDS: chlordiazePOXIDE HCL 25 MG CAPSULE PO SCH ×4 (05:59→22:14)
[2018-09-13] MEDS ORDERED: ONDANSETRON *ODT* 4 MG TABLET SL ONE (06:37)
--- NOTE | 2018-09-13 06:40 | PN ---
[facility] Progress Note Note: Patient is complaining of nausea Vital Signs Temperature 98.6 F 09/12/18 21:55 Pulse Rate 80 09/12/18 21:55 Respiratory Rate 16 09/13/18 00:30 Blood Pressure 134/81 09/12/18 21:55 O2 Sat by Pulse Oximetry (%) Action: Zofran 4mg sublingual ordered
[2018-09-13] MEDS: ALBUTEROL SO4 8 GM HFA INHALER IH PRN (07:21)
[2018-09-13] MEDS ORDERED: METHADONE HCL 10 MG TABLET (FOR DETOX USE ONLY) PO SCH (10:00)
[2018-09-13] MEDS: BUDESONIDE/FORMETEROL FUMARATE 80/4.5 mcg INHALER IH SCH ×2 (10:26→22:13)
[2018-09-13] MEDS: PRENATAL VITAMINS W/ FOLIC ACID TABLET (FP) PO SCH (10:27)
[2018-09-13] MEDS: VARENICLINE TARTRATE 1 MG TAB PO SCH ×2 (10:27→22:14)
[2018-09-13 10:45] LABS: HEMATOCRIT 38.5 % (32.4-45.2); HEMOGLOBIN 12.5 GM/dL (10.7-15.3); MCH 29.4 pg (25.7-33.7); MCHC 32.4 g/dl (32.0-36.0); MEAN CELL VOLUME 90.9 fl (80-96); MEAN PLT VOLUME 9.8 fl (7.5-11.1); PLATELET COUNT 184 K/MM3 (134-434); RBC 4.23 M/mm3 (3.60-5.2); RDW 13.3 % (11.6-15.6); WHITE BLOOD COUNT 6.9 K/mm3 (4.0-10.0)
[2018-09-13 11:00] LABS: ALBUMIN 3.8 g/dl (3.4-5.0); ALK PHOS 61 U/L (45-117); ANION GAP 10 MMOL/L (8-16); BILIRUBIN,TOTAL 0.6 mg/dL (0.2-1); BLOOD UREA NITROGEN 10 mg/dL (7-18); CALCIUM 8.5 mg/dL (8.5-10.1); CHLORIDE 106 mmol/L (98-107); CO2 26 mmol/L (21-32); CREATININE 0.8 mg/dL (0.55-1.3); GLUCOSE,RANDOM 88 mg/dL (74-106); POTASSIUM 3.6 mmol/L (3.5-5.1); SGOT/AST 11 U/L (15-37); SGPT/ALT 16 U/L (13-61); SODIUM 141 mmol/L (136-145); TOT PROT 6.7 g/dl (6.4-8.2)
[2018-09-13] MEDS ORDERED: ONDANSETRON *ODT* 4 MG TABLET SL PRN (12:21)
--- NOTE | 2018-09-13 12:21 | PN ---
S CIWA - CIWA Score Nausea/Vomitin-No Nausea/No Vomiting Muscle Tremors: 4-Moderate,w/Arms Extend Anxiety: 4-Mod. Anxious/Guarded Agitation: 4-Moderately Restless Paroxysmal Sweats: 3 Orientation: 0-Oriented Tacttile Disturbances: 0-None Auditory Disturbances: 0-None Visual Disturbances: 0-None Headache: 0-None Present CIWA-Ar Total Score: 15 [facility] COWS - Scale Resting Pulse: 0= [place] 80 or Below Sweatin=Flushed/Facial Moisture Restless Observation: 1= Difficult to Sit Still Pupil Size: 0= Normal to Room Light Bone or Joint Aches: 2= Severe Diffuse Aches Runny Nose/ Eye Tearin= Nasal Congestion GI Upset > 30mins: 1= Stomach Cramp Tremor Observation of Outstretched Hands: 2= Slight Tremor Visible Yawning Observation: 2= >3x During Session Anxiety or Irritability: 2=Irritable/Anxious Goose Flesh Skin: 0=Smooth Skin COWS Score: 13 S Progress Note (SOAP) Subjective: tired sweats irritable agitation anxiety body aches nausea shakes Objective: 09/13/18 12:20 Vital Signs Temperature 97.9 F 09/13/18 09:51 Pulse Rate 77 09/13/18 09:51 Respiratory Rate 16 09/13/18 09:51 Blood Pressure 93/58 L 09/13/18 09:51 O2 Sat by Pulse Oximetry (%) Laboratory Tests 09/13/18 09/13/18 09/13/18 07:00 07:00 07:00 WBC 6.9 RBC 4.23 Hgb 12.5 Hct 38.5 MCV 90.9 MCH 29.4 MCHC 32.4 RDW 13.3 Plt Count 184 D MPV 9.8 D Sodium 141 Potassium 3.6 Chloride 106 Carbon Dioxide 26 Anion Gap 10 BUN 10 Creatinine 0.8 Creat Clearance w eGFR > 60 Random Glucose 88 Calcium 8.5 Total Bilirubin 0.6 AST 11 L ALT 16 Alkaline Phosphatase 61 Total Protein 6.7 Albumin 3.8 RPR Titer HIV 1&2 Antibody Screen Negative HIV P24 Antigen Negative 09/13/18 07:00 WBC RBC Hgb Hct MCV MCH MCHC RDW Plt Count MPV Sodium Potassium Chloride Carbon Dioxide Anion Gap BUN Creatinine Creat Clearance w eGFR Random Glucose Calcium Total Bilirubin AST ALT Alkaline Phosphatase Total Protein Albumin RPR Titer Nonreactive HIV 1&2 Antibody Screen HIV P24 Antigen aaox3 ambulating no acute distress Assessment: 09/13/18 12:21 withdrawal sx Plan: continue detox increase fluids zofran prn
--- NOTE | 2018-09-13 12:47 | EKG ---
Test Reason : Blood Pressure : / mmHG Vent. Rate : 068 BPM Atrial Rate : 068 BPM P-R Int : 206 ms QRS Dur : 098 ms QT Int : 414 ms P-R-T Axes : 063 071 067 degrees QTc Int : 440 ms NORMAL SINUS RHYTHM NORMAL ECG WHEN COMPARED WITH ECG OF 03-OCT-2016 14:47, NO SIGNIFICANT CHANGE WAS FOUND Confirmed by DIANA FINNEY MD ([id number]) on 09/13/2018 12:47:32 PM Referred By: Confirmed By:DIANA FINNEY MD
[2018-09-13] MEDS: MELATONIN 5 MG TABLETS PO PRN (22:14)
[2018-09-13] MEDS: MONTELUKAST NA 10 MG TABLET PO SCH (22:14)
[2018-09-14] MEDS: THIAMINE HCL 100 MG TABLET (FP) PO SCH (00:12)
[2018-09-14] MEDS: ALBUTEROL SO4 8 GM HFA INHALER IH PRN (03:11)
[2018-09-14] MEDS: chlordiazePOXIDE HCL 25 MG CAPSULE PO SCH ×2 (06:27→10:23)
[2018-09-14 07:13] VITALS: PULSE 74
[2018-09-14 09:39] VITALS: BP 105/52; TEMP 98.1
[2018-09-14] MEDS ORDERED: METHADONE HCL 5 MG TABLET (FOR DETOX USE ONLY) PO SCH (10:00)
[2018-09-14] MEDS: PRENATAL VITAMINS W/ FOLIC ACID TABLET (FP) PO SCH (10:23)
[2018-09-14] MEDS: VARENICLINE TARTRATE 1 MG TAB PO SCH (10:23)
[2018-09-14] MEDS: BUDESONIDE/FORMETEROL FUMARATE 80/4.5 mcg INHALER IH SCH (10:24)
--- NOTE | 2018-09-14 11:58 | PN ---
[facility] Progress Note Note: pt states she rather go home because this place is not suitable for her. no c/o of withdrawals at this time. Pt signed out AMA.
--- NOTE | 2018-09-14 11:59 | DS ---
[facility] Detox Discharge Summary Admission Date: 09/12/18 - History Present History: Alcohol Dependence, Cannabis Dependence, Opioid Dependence, Sedative Dependence - Physical Exam Results Vital Signs: Vital Signs Temperature 98.1 F 09/14/18 09:38 Pulse Rate 74 09/14/18 09:38 Respiratory Rate 18 09/14/18 09:38 Blood Pressure 105/52 L 09/14/18 09:38 O2 Sat by Pulse Oximetry (%) - Treatment Hospital Course: Discharged Condition Good - Medication Discharge Medications: Ambulatory Orders Albuterol Sulfate Inhaler - [Ventolin Hfa Inhaler -] 2 inh PO Q4H PRN 10/03/16 Montelukast Na [Singulair -] 10 mg PO HS 10/03/16 Varenicline Tartrate [Chantix] 1 mg PO BID 10/03/16 Budesonide/Formeterol Fumarate [SYMBICORT 80/4.5mcg -] 1 inh PO BID 09/12/18 - Diagnosis (1) Alcohol dependence with uncomplicated withdrawal Current Visit: Yes Status: Acute (2) Nicotine dependence in remission Current Visit: Yes Status: Acute Qualifiers: Nicotine product type: unspecified Qualified Code(s): F17.201 - Nicotine dependence, unspecified, in remission (3) Opioid dependence with withdrawal Current Visit: Yes Status: Chronic (4) Sedative, hypnotic or anxiolytic dependence with withdrawal, uncomplicated Current Visit: Yes Status: Chronic (5) Asthma Current Visit: Yes Status: Chronic Qualifiers: Asthma severity: unspecified severity Asthma persistence: unspecified Asthma complication type: uncomplicated Qualified Code(s): J45.909 - Unspecified asthma, uncomplicated (6) Blind left eye Current Visit: Yes Status: Chronic (7) Thyroid nodule Current Visit: Yes Status: Chronic (8) Cannabis dependence, uncomplicated Current Visit: No Status: Acute (9) Drug-induced mood disorder Current Visit: No Status: Acute (10) Hyperthyroidism Current Visit: No Status: Chronic - AMA Did Patient Leave Against Medical Advice: Yes (going home)
[2018-09-14] MEDS ORDERED: chlordiazePOXIDE 5 MG CAPSULE PO SCH (23:00)
[2018-09-15] MEDS ORDERED: chlordiazePOXIDE HCL 10 MG CAPSULE PO SCH (23:00)
[2018-09-16] MEDS ORDERED: METHADONE HCL 10 MG TABLET (FOR DETOX USE ONLY) PO SCH (10:00)
[2018-09-17] MEDS ORDERED: METHADONE HCL 5 MG TABLET (FOR DETOX USE ONLY) PO SCH (06:00)
== END 2018-09-14 12:01 | disposition left against medical advice (07) | DRG 894 ==
LOC: YASAS 12:12 → Y6N 16:48
PROC: HZ2ZZZZ Detoxification Services for Substance Abuse Treatment (ICD-10-PCS; principal; 2018-09-12)
DX: F11.23 Opioid dependence with withdrawal (principal); F10.230 Alcohol dependence with withdrawal, uncomplicated; F13.230 Sedative, hypnotic or anxiolytic dependence with withdrawal, uncomplicated; F12.20 Cannabis dependence, uncomplicated; F17.201 Nicotine dependence, unspecified, in remission; F19.24 Other psychoactive substance dependence with psychoactive substance-induced mood disorder; J45.909 Unspecified asthma, uncomplicated; H54.40 Blindness, one eye, unspecified eye; E04.1 Nontoxic single thyroid nodule; E05.90 Thyrotoxicosis, unspecified without thyrotoxic crisis or storm; Z88.0 Allergy status to penicillin; Z91.5 Personal history of self-harm
CPT/HCPCS: 36415; 80053; 85027; 86593; 87389; 93005; 93010; Q0162

== ENCOUNTER 2018-10-16 13:59 | Inpatient (IN) | payer OTHER ==
[2018-10-16 15:34] VITALS: BMI 22.7
--- NOTE | 2018-10-16 17:46 | PN ---
[facility] Progress Note Note: detox from heroin and alcohol Pt states she used IV heroin for the first time yesterday- pt states she tried to inject herself about 50 times but could not get the vein- says she does not want to use again. Heroin- used about 1 bundle/day, cocaine- occ Benzo- valium occ for sleep alcohol- 2 pints/day- no h/o seizures/DT's DUR- no recent meds Utox: Fadia, opiates, MTD, BZO, Bup
--- NOTE | 2018-10-16 17:51 | HP ---
COWS - Scale Resting Pulse: 1= [place] 81-100 Sweatin= Chills/Flushing Restless Observation: 1= Difficult to Sit Still Pupil Size: 1= Pupils >than Normal Bone or Joint Aches: 1= Mild Discomfort Runny Nose/ Eye Tearin= Nasal Congestion GI Upset > 30mins: 1= Stomach Cramp Tremor Observation: 1= Tremor [place], Not Seen Yawning Observation: 1= 1-2x During Session Anxiety or Irritability: 1=Feels Anxious/Irritable Goose Flesh Skin: 3=Piloerection COWS Score: 13 CIWA Score Nausea/Vomitin-Mild Nausea/No Vomiting Muscle Tremors: 3 Anxiety: 2 Agitation: 2 Paroxysmal Sweats: 2 Orientation: 0-Oriented Tacttile Disturbances: 0-None Auditory Disturbances: 0-None Visual Disturbances: 0-None Headache: 2-Mild CIWA-Ar Total Score: 12 - Admission Criteria OASAS Guidelines: Admission for Medically Managed Detox: Requires at least one of the followin. CIWA greater than 12 2. Seizures within the past 24 hours 3. Delirium tremens within the past 24 hours 4. Hallucinations within the past 24 hours 5. Acute intervention needed for co occurring medical disorder 6. Acute intervention needed for co occurring psychiatric disorder 7. Severe withdrawal that cannot be handled at a lower level of care (continued vomiting, continued diarrhea, abnormal vital signs) requiring intravenous medication and/or fluids 8. Patient presents the following: CIWA greater than 12 Admission Criteria Met: Admission criteria met Admission ROS S - [facility] Chief Complaint: detox from heroin and alcohol 43 yo with h/o asthma- singulair, albuterol, norbert. Pt states she used IV heroin for the first time yesterday- pt states she tried to inject herself about 50 times but could not get the vein- says she does not want to use IV again. Heroin- used about 2 bundle/day, sniffing cocaine- occ Benzo- valium occ for sleep alcohol- 2 pints/day- no h/o seizures/DT's smokes- stopped with chantix, 1mg BID THC- no DUR- no recent meds Utox: Fadia, opiates, MTD, BZO, Bup Called [email or web address] pharmacy for list of meds: Brio elipta monteleukast 10mg gabapentin 300mg TID seroquel 50mg Ventolin Allergies/Adverse Reactions: Allergies Allergy/AdvReac Type Severity Reaction Status Date / Time Penicillins Allergy Severe Difficulty Verified 09/12/18 14:13 Breathing tree nut Allergy Severe Difficulty Verified 09/12/18 14:13 Breathing wheat Allergy Severe Difficulty Verified 09/12/18 14:13 Breathing Exam Limitations: No Limitations - Ebola screening Have you traveled outside of the country in the last 21 days: No Have you had contact with anyone from an Ebola affected area: No Have you been sick,other than usual withdrawal symptoms: No Do you have a fever: No Patient History - Patient Medical History Hx Anemia: Yes Hx Asthma: Yes Hx Chronic Obstructive Pulmonary Disease (COPD): No Hx Cardiac Disorders: No Hx Hypertension: No Hx Hypercholesterolemia: No HX Cerebrovascular Accident: No Hx Seizures: No Hx Diabetes: No Hx Gastrointestinal Disorders: No Hx Genitourinary Disorders: No Hx Sexually Transmitted Disorders: Yes (unknown) Hx Renal Disease (ESRD): No Hx Thyroid Disease: Yes (HYPERACTIVE THYROID AND A NODULE IN THROAT.) Hx Human Immunodeficiency Virus (HIV): No (NEGATIVE HX) Hx Hepatitis C: No Hx Depression: Yes Hx Suicide Attempt: Yes (cut left wrist in 07/2017) Hx Bipolar Disorder: Yes Hx Schizophrenia: No - Patient Surgical History Past Surgical History: No Hx Neurologic Surgery: No Hx Cataract Extraction: No Hx Cardiac Surgery: No Hx Lung Surgery: No Hx Breast Surgery: No Hx Breast Biopsy: No Hx Abdominal Surgery: No Hx Appendectomy: No Hx Cholecystectomy: No Hx Genitourinary Surgery: No Hx Section: No Hx Orthopedic Surgery: No Anesthesia Reaction: No - PPD History Date: 10/05/16 Results: 0 mm - Reproductive History Patient is a Female of Child Bearing Age (11 -55 yrs old): Yes Last Menstrual Period: 07/26/18 Patient : No - Smoking Cessation Smoking history: Former smoker Have you smoked in the past 12 months: Yes Aproximately how many cigarettes per day: 10 If you are a former smoker, when did you quit?: 06/2018 Hx Chewing Tobacco Use: No Initiated information on smoking cessation: Yes 'Breaking Loose' booklet given: 10/16/18 - Substance & Tx. History Hx Alcohol Use: Yes Hx Substance Use: Yes Substance Use Type: Alcohol, Cocaine, Heroin, Opiates Family Disease History - Family Disease History Family History: Denies (pt states she is adopted and has no family hx) Admission Physical Exam [facility] - Vital Signs Vital Signs: Vital Signs - 24 hr 10/16/18 15:11 Temperature 97.6 F Pulse Rate 99 H Respiratory 18 Rate Blood Pressure 122/81 - Physical General Appearance: Yes: Within Normal Limits HEENTM: Yes: Within Normal Limits Neck: Yes: Within Normal Limits Cardiology: Yes: Within Normal Limits Genitourinary: Yes: Within Normal Limits Back: Yes: Within Normal Limits Musculoskeletal: Yes: Within Normal Limits Extremities: Yes: Swelling, Inflammation, Other (with fresh needle stick of forearm R hand- slight swelling of one area of needlestick- R forearm- d/w pt to let medical staff know if swelling/pain gets worse of) Neurological: Yes: Within Normal Limits, 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
[2018-10-16] MEDS ORDERED: P-EPHED 60MG/TRIPROLIDI 2.5MG TABLET PO PRN (18:03)
[2018-10-16] MEDS ORDERED: ACETAMINOPHEN 325 MG TABLET (FP) PO PRN (18:03)
[2018-10-16] MEDS ORDERED: MAGNESIUM CITRATE 300 ML BOTTLE PO PRN (18:03)
[2018-10-16] MEDS ORDERED: MAGNESIUM HYDROX 2400MG/30ML ORAL SUSPENSION 30 ML CUP PO PRN (18:03)
[2018-10-16] MEDS ORDERED: MAG HYDROX/AL HYDROX/SIMETH 30 ML UNIT-DOSE CUP PO PRN (18:03)
[2018-10-16] MEDS ORDERED: METHADONE HCL 10 MG TABLET (FOR DETOX USE ONLY) PO ONE ×2 (18:03→23:00)
[2018-10-16] MEDS ORDERED: MENTHOL/PHENOL 1 EACH UD MM PRN (18:03)
[2018-10-16] MEDS ORDERED: guaiFENesin/D-METHORPHAN HB 10 ML UNIT-DOSE CUPS PO PRN (18:03)
[2018-10-16] MEDS ORDERED: LOPERAMIDE HCL 2 MG CAPSULE PO PRN (18:03)
[2018-10-16] MEDS: chlordiazePOXIDE HCL 25 MG CAPSULE PO PRN (20:52)
[2018-10-16] MEDS: MONTELUKAST NA 10 MG TABLET PO SCH (22:31)
[2018-10-16] MEDS: THIAMINE HCL 100 MG TABLET (FP) PO SCH (22:31)
[2018-10-16] MEDS: chlordiazePOXIDE HCL 25 MG CAPSULE PO SCH (22:31)
[2018-10-16] MEDS: QUEtiapine FUMARATE 50 MG TABLET PO SCH (22:31)
[2018-10-16] MEDS: GABAPENTIN 300 MG CAPSULE (FP) PO SCH (22:31)
[2018-10-16] MEDS: BUDESONIDE/FORMETEROL FUMARATE 80/4.5 mcg INHALER IH SCH (22:32)
[2018-10-16] MEDS: VARENICLINE TARTRATE 1 MG TAB PO SCH (23:58)
[2018-10-17] MEDS: chlordiazePOXIDE HCL 25 MG CAPSULE PO SCH ×4 (06:11→22:12)
[2018-10-17] MEDS: GABAPENTIN 300 MG CAPSULE (FP) PO SCH ×3 (06:12→22:13)
[2018-10-17] MEDS ORDERED: METHADONE HCL 10 MG TABLET (FOR DETOX USE ONLY) PO SCH (10:00)
[2018-10-17] MEDS: BUDESONIDE/FORMETEROL FUMARATE 80/4.5 mcg INHALER IH SCH ×2 (10:06→22:12)
[2018-10-17] MEDS: PRENATAL VITAMINS W/ FOLIC ACID TABLET (FP) PO SCH (10:07)
[2018-10-17] MEDS: VARENICLINE TARTRATE 1 MG TAB PO SCH ×2 (10:07→22:14)
--- NOTE | 2018-10-17 10:42 | PN ---
[facility] CIWA - CIWA Score Nausea/Vomitin-No Nausea/No Vomiting Muscle Tremors: 3 Anxiety: 3 Agitation: 4-Moderately Restless Paroxysmal Sweats: 3 Orientation: 0-Oriented Tacttile Disturbances: 0-None Auditory Disturbances: 0-None Visual Disturbances: 0-None Headache: 0-None Present CIWA-Ar Total Score: 13 [facility] COWS - Scale Resting Pulse: 1= [place] 81-100 Sweatin=Flushed/Facial Moisture Restless Observation: 1= Difficult to Sit Still Pupil Size: 0= Normal to Room Light Bone or Joint Aches: 1= Mild Discomfort Runny Nose/ Eye Tearin= Runny Nose/Eyes GI Upset > 30mins: 0= None Tremor Observation of Outstretched Hands: 2= Slight Tremor Visible Yawning Observation: 2= >3x During Session Anxiety or Irritability: 2=Irritable/Anxious Goose Flesh Skin: 0=Smooth Skin COWS Score: 13 S Progress Note (SOAP) Subjective: sweats shakes my right hand is hurting d/t me shooting interrupted sleep anxiety Objective: 10/17/18 10:46 Vital Signs Temperature 98.2 F 10/17/18 09:55 Pulse Rate 94 H 10/17/18 09:55 Respiratory Rate 18 10/17/18 09:55 Blood Pressure 134/82 10/17/18 09:55 O2 Sat by Pulse Oximetry (%) labs ordered pending aaox3 ambulating no acute distress Assessment: 10/17/18 10:46 withdrawal sx Plan: continue detox increase fluids warm compress encouraged to use prn bactrim ds BID x 7 day ordered
[2018-10-17] MEDS: SULFAMETHOXAZOLE/TRIMETHOPRIM 800MG/160MG D.S. TABLET PO SCH ×2 (13:00→22:12)
[2018-10-17 17:04] LABS: URINE APPEARANCE TURBID; URINE BILIRUBIN NEGATIVE (<2.0 mg/dL); URINE COLOR AMBER; URINE GLUCOSE (UA) NEGATIVE (NEGATIVE); URINE KETONE NEGATIVE (NEGATIVE); URINE LEUK ESTERASE NEGATIVE (NEGATIVE); URINE NITRITE NEGATIVE (NEGATIVE); URINE PROTEIN NEGATIVE (NEGATIVE); URINE UROBILINOGEN NEGATIVE mg/dL (0.2-1.0)
[2018-10-17] MEDS: hydrOXYzine PAMOATE 50 MG CAPSULE (FP) PO PRN (17:05)
[2018-10-17] MEDS: QUEtiapine FUMARATE 50 MG TABLET PO SCH (22:12)
[2018-10-17] MEDS: MONTELUKAST NA 10 MG TABLET PO SCH (22:13)
[2018-10-17] MEDS: MELATONIN 5 MG TABLETS PO PRN (22:13)
[2018-10-17] MEDS: THIAMINE HCL 100 MG TABLET (FP) PO SCH (22:13)
[2018-10-18] MEDS: chlordiazePOXIDE HCL 25 MG CAPSULE PO SCH ×3 (06:06→18:07)
[2018-10-18] MEDS: GABAPENTIN 300 MG CAPSULE (FP) PO SCH ×3 (06:06→22:23)
[2018-10-18] MEDS: ALBUTEROL SO4 8 GM HFA INHALER IH PRN (09:35)
[2018-10-18] MEDS: VARENICLINE TARTRATE 1 MG TAB PO SCH ×2 (10:10→22:26)
[2018-10-18] MEDS: PRENATAL VITAMINS W/ FOLIC ACID TABLET (FP) PO SCH (10:10)
[2018-10-18] MEDS: BUDESONIDE/FORMETEROL FUMARATE 80/4.5 mcg INHALER IH SCH ×2 (10:10→22:41)
[2018-10-18] MEDS: METHADONE HCL 5 MG TABLET (FOR DETOX USE ONLY) PO SCH (10:10)
[2018-10-18] MEDS: SULFAMETHOXAZOLE/TRIMETHOPRIM 800MG/160MG D.S. TABLET PO SCH ×2 (10:10→22:23)
--- NOTE | 2018-10-18 10:41 | PN ---
[facility] CIWA - CIWA Score Nausea/Vomitin-No Nausea/No Vomiting Muscle Tremors: 3 Anxiety: 3 Agitation: 3 Paroxysmal Sweats: 3 Orientation: 0-Oriented Tacttile Disturbances: 0-None Auditory Disturbances: 0-None Visual Disturbances: 0-None Headache: 0-None Present CIWA-Ar Total Score: 12 [facility] COWS - Scale Resting Pulse: 1= [place] 81-100 Sweatin=Flushed/Facial Moisture Restless Observation: 1= Difficult to Sit Still Pupil Size: 0= Normal to Room Light Bone or Joint Aches: 2= Severe Diffuse Aches Runny Nose/ Eye Tearin= Nasal Congestion GI Upset > 30mins: 0= None Tremor Observation of Outstretched Hands: 1= Tremor [place], Not Seen Yawning Observation: 1= 1-2x During Session Anxiety or Irritability: 2=Irritable/Anxious Goose Flesh Skin: 0=Smooth Skin COWS Score: 11 [facility] Progress Note (SOAP) Subjective: agitation anxiety sweats interrupted sleep Objective: 10/18/18 10:40 Vital Signs Temperature 97.2 F L 10/18/18 09:43 Pulse Rate 89 10/18/18 09:43 Respiratory Rate 18 10/18/18 09:43 Blood Pressure 117/54 L 10/18/18 09:43 O2 Sat by Pulse Oximetry (%) Laboratory Tests 10/17/18 13:00 Urine Color Connie Urine Appearance Turbid Urine pH 5.0 Ur Specific [place] 1.028 Urine Protein Negative Urine Glucose (UA) Negative Urine Ketones Negative Urine Blood Negative Urine Nitrite Negative Urine Bilirubin Negative Urine Urobilinogen Negative Ur Leukocyte Esterase Negative rest of labs pending aaox3 ambulating no acute distress Assessment: 10/18/18 10:40 withdrawal sx Plan: continue detox increase fluids
[2018-10-18 10:47] LABS: ALBUMIN 3.6 g/dl (3.4-5.0); ALK PHOS 51 U/L (45-117); ANION GAP 3 MMOL/L (8-16); BILIRUBIN,TOTAL 0.2 mg/dL (0.2-1); BLOOD UREA NITROGEN 9 mg/dL (7-18); CALCIUM 8.7 mg/dL (8.5-10.1); CHLORIDE 108 mmol/L (98-107); CO2 33 mmol/L (21-32); CREATININE 0.8 mg/dL (0.55-1.3); GLUCOSE,RANDOM 89 mg/dL (74-106); POTASSIUM 4.3 mmol/L (3.5-5.1); SGOT/AST 9 U/L (15-37); SGPT/ALT 16 U/L (13-61); SODIUM 143 mmol/L (136-145); TOT PROT 6.5 g/dl (6.4-8.2)
[2018-10-18 10:55] LABS: HEMATOCRIT 37.5 % (32.4-45.2); HEMOGLOBIN 12.7 GM/dL (10.7-15.3); MCH 31.5 pg (25.7-33.7); MCHC 33.9 g/dl (32.0-36.0); MEAN CELL VOLUME 92.8 fl (80-96); MEAN PLT VOLUME 10.1 fl (7.5-11.1); PLATELET COUNT 167 K/MM3 (134-434); RBC 4.04 M/mm3 (3.60-5.2); RDW 13.9 % (11.6-15.6); WHITE BLOOD COUNT 4.9 K/mm3 (4.0-10.0)
[2018-10-18] MEDS: chlordiazePOXIDE HCL 25 MG CAPSULE PO PRN ×2 (11:53→22:40)
[2018-10-18] MEDS: hydrOXYzine PAMOATE 50 MG CAPSULE (FP) PO PRN (11:54)
[2018-10-18] MEDS ORDERED: LIDOCAINE 5% TOPICAL PATCH TP ONE (18:00)
[2018-10-18] MEDS: IBUPROFEN 400 MG TABLET (FP) PO PRN (20:10)
--- NOTE | 2018-10-18 21:46 | PN ---
[facility] Progress Note Note: Vital Signs Temperature 98.2 F 10/18/18 17:37 Pulse Rate 85 10/18/18 17:37 Respiratory Rate 18 10/18/18 17:37 Blood Pressure 114/72 10/18/18 17:37 O2 Sat by Pulse Oximetry (%) c/o of back pain flexeril prn increase fluids ambulate continue detox continue to monitor
[2018-10-18] MEDS ORDERED: LIDOCAINE PATCH REMOVAL MC SCH (22:00)
[2018-10-18] MEDS: MONTELUKAST NA 10 MG TABLET PO SCH (22:23)
[2018-10-18] MEDS: QUEtiapine FUMARATE 50 MG TABLET PO SCH (22:23)
[2018-10-18] MEDS: THIAMINE HCL 100 MG TABLET (FP) PO SCH (22:23)
[2018-10-18] MEDS: MELATONIN 5 MG TABLETS PO PRN (22:25)
[2018-10-18] MEDS: LIDOCAINE PATCH REMOVAL MC SCH (22:26)
[2018-10-18] MEDS: CYCLOBENZAPRINE HCL 10 MG TABLET (FP) PO PRN (22:26)
[2018-10-19] MEDS: chlordiazePOXIDE 5 MG CAPSULE PO SCH ×4 (00:08→17:26)
[2018-10-19] MEDS: GABAPENTIN 300 MG CAPSULE (FP) PO SCH ×3 (05:33→22:25)
[2018-10-19] MEDS: BUDESONIDE/FORMETEROL FUMARATE 80/4.5 mcg INHALER IH SCH ×2 (10:18→22:28)
[2018-10-19] MEDS: LIDOCAINE 5% TOPICAL PATCH TP SCH (10:19)
[2018-10-19] MEDS: SULFAMETHOXAZOLE/TRIMETHOPRIM 800MG/160MG D.S. TABLET PO SCH ×2 (10:19→22:25)
[2018-10-19] MEDS: METHADONE HCL 5 MG TABLET (FOR DETOX USE ONLY) PO SCH (10:19)
[2018-10-19] MEDS: PRENATAL VITAMINS W/ FOLIC ACID TABLET (FP) PO SCH (10:19)
[2018-10-19] MEDS: VARENICLINE TARTRATE 1 MG TAB PO SCH ×2 (10:19→22:26)
[2018-10-19] MEDS ORDERED: ONDANSETRON *ODT* 4 MG TABLET SL PRN (11:11)
--- NOTE | 2018-10-19 11:39 | PN ---
[facility] Progress Note (SOAP) Subjective: sweats nausea/vomiting anxiety low back pain Objective: 10/19/18 11:38 Vital Signs Temperature 98.3 F 10/19/18 09:28 Pulse Rate 85 10/19/18 09:28 Respiratory Rate 18 10/19/18 09:28 Blood Pressure 112/69 10/19/18 09:28 O2 Sat by Pulse Oximetry (%) aaox3 ambulating no acute distress Assessment: 10/19/18 11:39 withdrawal sx Plan: continue detox increase fluids jarrodfran SL prn
[2018-10-19] MEDS: chlordiazePOXIDE HCL 25 MG CAPSULE PO PRN (14:35)
[2018-10-19] MEDS: CYCLOBENZAPRINE HCL 10 MG TABLET (FP) PO PRN (14:35)
[2018-10-19] MEDS: hydrOXYzine PAMOATE 50 MG CAPSULE (FP) PO PRN (14:35)
[2018-10-19] MEDS: chlordiazePOXIDE HCL 10 MG CAPSULE PO SCH (22:25)
[2018-10-19] MEDS: QUEtiapine FUMARATE 50 MG TABLET PO SCH (22:25)
[2018-10-19] MEDS: THIAMINE HCL 100 MG TABLET (FP) PO SCH (22:27)
[2018-10-19] MEDS: MONTELUKAST NA 10 MG TABLET PO SCH (22:27)
[2018-10-19] MEDS: LIDOCAINE PATCH REMOVAL MC SCH (22:28)
[2018-10-20] MEDS: chlordiazePOXIDE HCL 10 MG CAPSULE PO SCH ×3 (05:59→17:50)
[2018-10-20] MEDS: ALBUTEROL SO4 8 GM HFA INHALER IH PRN (06:00)
[2018-10-20] MEDS: GABAPENTIN 300 MG CAPSULE (FP) PO SCH ×3 (07:48→22:26)
[2018-10-20] MEDS ORDERED: METHADONE HCL 10 MG TABLET (FOR DETOX USE ONLY) PO SCH (10:00)
[2018-10-20] MEDS: CYCLOBENZAPRINE HCL 10 MG TABLET (FP) PO PRN ×2 (10:16→20:28)
[2018-10-20] MEDS: SULFAMETHOXAZOLE/TRIMETHOPRIM 800MG/160MG D.S. TABLET PO SCH ×2 (10:16→22:25)
[2018-10-20] MEDS: PRENATAL VITAMINS W/ FOLIC ACID TABLET (FP) PO SCH (10:16)
[2018-10-20] MEDS: BUDESONIDE/FORMETEROL FUMARATE 80/4.5 mcg INHALER IH SCH ×2 (10:17→22:25)
[2018-10-20] MEDS: LIDOCAINE 5% TOPICAL PATCH TP SCH (10:17)
[2018-10-20] MEDS: VARENICLINE TARTRATE 1 MG TAB PO SCH ×2 (10:17→22:26)
--- NOTE | 2018-10-20 14:06 | PN ---
[facility] Progress Note (SOAP) Subjective: pt states doing well, going to rehab tomorrow- but does not want to go to [facility]- prefers to home instead Vital Signs - 24 hr 10/19/18 10/19/18 10/20/18 18:00 22:49 00:30 Temperature 97.3 F L 97.9 F Pulse Rate 67 69 Respiratory 18 18 18 Rate Blood Pressure 116/64 102/59 L 10/20/18 10/20/18 10/20/18 03:30 08:52 09:51 Temperature 97.9 F 98 F Pulse Rate 84 91 H Respiratory 18 18 18 Rate Blood Pressure 102/61 109/74 10/20/18 13:50 Temperature 97.3 F L Pulse Rate 80 Respiratory 18 Rate Blood Pressure 111/74 Laboratory Tests 10/17/18 10/18/18 10/18/18 13:00 07:00 07:00 WBC 4.9 RBC 4.04 Hgb 12.7 Hct 37.5 MCV 92.8 MCH 31.5 MCHC 33.9 RDW 13.9 Plt Count 167 MPV 10.1 Sodium 143 Potassium 4.3 Chloride 108 H Carbon Dioxide 33 H Anion Gap 3 L BUN 9 Creatinine 0.8 Creat Clearance w eGFR > 60 Random Glucose 89 Calcium 8.7 Total Bilirubin 0.2 AST 9 L ALT 16 Alkaline Phosphatase 51 Total Protein 6.5 Albumin 3.6 Urine Color Connie Urine Appearance Turbid Urine pH 5.0 Ur Specific [place] 1.028 Urine Protein Negative Urine Glucose (UA) Negative Urine Ketones Negative Urine Blood Negative Urine Nitrite Negative Urine Bilirubin Negative Urine Urobilinogen Negative Ur Leukocyte Esterase Negative RPR Titer HIV 1&2 Antibody Screen HIV P24 Antigen 10/18/18 10/18/18 07:00 07:00 WBC RBC Hgb Hct MCV MCH MCHC RDW Plt Count MPV Sodium Potassium Chloride Carbon Dioxide Anion Gap BUN Creatinine Creat Clearance w eGFR Random Glucose Calcium Total Bilirubin AST ALT Alkaline Phosphatase Total Protein Albumin Urine Color Urine Appearance Urine pH Ur Specific [place] Urine Protein Urine Glucose (UA) Urine Ketones Urine Blood Urine Nitrite Urine Bilirubin Urine Urobilinogen Ur Leukocyte Esterase RPR Titer Nonreactive HIV 1&2 Antibody Screen Negative HIV P24 Antigen Negative a/p: pt nearing end of detox protocols- d/w pt the importance of treatment for OUD with suboxone or methadone- pt refused saying 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
[2018-10-20] MEDS: hydrOXYzine PAMOATE 50 MG CAPSULE (FP) PO PRN ×2 (14:44→20:28)
[2018-10-20] MEDS: QUEtiapine FUMARATE 50 MG TABLET PO SCH (22:25)
[2018-10-20] MEDS: MONTELUKAST NA 10 MG TABLET PO SCH (22:25)
[2018-10-20] MEDS: THIAMINE HCL 100 MG TABLET (FP) PO SCH (22:25)
[2018-10-20] MEDS: MELATONIN 5 MG TABLETS PO PRN (22:26)
[2018-10-20] MEDS: IBUPROFEN 400 MG TABLET (FP) PO PRN (22:26)
[2018-10-20] MEDS: LIDOCAINE PATCH REMOVAL MC SCH (22:27)
[2018-10-21] MEDS ORDERED: METHADONE HCL 5 MG TABLET (FOR DETOX USE ONLY) PO SCH (06:00)
[2018-10-21] MEDS: CYCLOBENZAPRINE HCL 10 MG TABLET (FP) PO PRN ×2 (06:13→17:00)
[2018-10-21] MEDS: GABAPENTIN 300 MG CAPSULE (FP) PO SCH ×3 (06:13→21:31)
[2018-10-21] MEDS: PRENATAL VITAMINS W/ FOLIC ACID TABLET (FP) PO SCH (10:37)
[2018-10-21] MEDS: hydrOXYzine PAMOATE 50 MG CAPSULE (FP) PO PRN ×2 (10:37→17:00)
[2018-10-21] MEDS: SULFAMETHOXAZOLE/TRIMETHOPRIM 800MG/160MG D.S. TABLET PO SCH ×2 (10:37→21:31)
[2018-10-21] MEDS: BUDESONIDE/FORMETEROL FUMARATE 80/4.5 mcg INHALER IH SCH ×2 (10:38→21:32)
[2018-10-21] MEDS: LIDOCAINE 5% TOPICAL PATCH TP SCH (10:38)
[2018-10-21] MEDS: VARENICLINE TARTRATE 1 MG TAB PO SCH ×2 (10:38→21:32)
--- NOTE | 2018-10-21 11:46 | PN ---
[facility] Progress Note Note: PATIENT COMPLETED DETOX AND TRANSFERRED TO REHAB UNIT 3 [facility]. PATIENT STATES SHE FEELS BETTER AND ENCOURAGED TO COMPLETE REHAB TO PREVENT RELAPSE. Vital Signs Temperature 98.2 F 10/21/18 09:41 Pulse Rate 93 H 10/21/18 09:41 Respiratory Rate 18 10/21/18 09:41 Blood Pressure 113/71 10/21/18 09:41 O2 Sat by Pulse Oximetry (%) Laboratory Tests 10/17/18 10/18/18 10/18/18 13:00 07:00 07:00 WBC 4.9 RBC 4.04 Hgb 12.7 Hct 37.5 MCV 92.8 MCH 31.5 MCHC 33.9 RDW 13.9 Plt Count 167 MPV 10.1 Sodium 143 Potassium 4.3 Chloride 108 H Carbon Dioxide 33 H Anion Gap 3 L BUN 9 Creatinine 0.8 Creat Clearance w eGFR > 60 Random Glucose 89 Calcium 8.7 Total Bilirubin 0.2 AST 9 L ALT 16 Alkaline Phosphatase 51 Total Protein 6.5 Albumin 3.6 Urine Color Connie Urine Appearance Turbid Urine pH 5.0 Ur Specific [place] 1.028 Urine Protein Negative Urine Glucose (UA) Negative Urine Ketones Negative Urine Blood Negative Urine Nitrite Negative Urine Bilirubin Negative Urine Urobilinogen Negative Ur Leukocyte Esterase Negative RPR Titer HIV 1&2 Antibody Screen HIV P24 Antigen 10/18/18 10/18/18 07:00 07:00 WBC RBC Hgb Hct MCV MCH MCHC RDW Plt Count MPV Sodium Potassium Chloride Carbon Dioxide Anion Gap BUN Creatinine Creat Clearance w eGFR Random Glucose Calcium Total Bilirubin AST ALT Alkaline Phosphatase Total Protein Albumin Urine Color Urine Appearance Urine pH Ur Specific [place] Urine Protein Urine Glucose (UA) Urine Ketones Urine Blood Urine Nitrite Urine Bilirubin Urine Urobilinogen Ur Leukocyte Esterase RPR Titer Nonreactive HIV 1&2 Antibody Screen Negative HIV P24 Antigen Negative
[2018-10-21] MEDS: THIAMINE HCL 100 MG TABLET (FP) PO SCH (21:31)
[2018-10-21] MEDS: QUEtiapine FUMARATE 50 MG TABLET PO SCH (21:31)
[2018-10-21] MEDS: MONTELUKAST NA 10 MG TABLET PO SCH (21:31)
[2018-10-21] MEDS: LIDOCAINE PATCH REMOVAL MC SCH (21:32)
[2018-10-22] MEDS: GABAPENTIN 300 MG CAPSULE (FP) PO SCH ×3 (06:29→21:21)
[2018-10-22] MEDS: CYCLOBENZAPRINE HCL 10 MG TABLET (FP) PO PRN ×2 (06:30→16:47)
[2018-10-22] MEDS: ALBUTEROL SO4 8 GM HFA INHALER IH PRN (06:50)
[2018-10-22] MEDS ORDERED: PT OWN MED DRAWER 7, Y5N ONE ×2 (08:53→20:02)
[2018-10-22] MEDS ORDERED: IBUPROFEN 600 MG TABLET (FP) PO PRN (09:33)
[2018-10-22] MEDS: hydrOXYzine PAMOATE 50 MG CAPSULE (FP) PO PRN (10:37)
[2018-10-22] MEDS: SULFAMETHOXAZOLE/TRIMETHOPRIM 800MG/160MG D.S. TABLET PO SCH ×2 (10:37→21:21)
[2018-10-22] MEDS: PRENATAL VITAMINS W/ FOLIC ACID TABLET (FP) PO SCH (10:37)
[2018-10-22] MEDS: BUDESONIDE/FORMETEROL FUMARATE 80/4.5 mcg INHALER IH SCH ×2 (10:38→21:21)
[2018-10-22] MEDS: VARENICLINE TARTRATE 1 MG TAB PO SCH ×2 (10:38→21:23)
[2018-10-22] MEDS: LIDOCAINE 5% TOPICAL PATCH TP SCH (10:38)
--- NOTE | 2018-10-22 13:02 | PN ---
[facility] Progress Note Note: PT C/O SEVERE BACK PAIN AND REPORTS SHE IS ON GABAPENTIN PRESCRIBED AND SENT TO [facility] FROM [facility] BUT DID NOT PICK IT UP BEFORE COMING HERE FOR TREATMENT. THIS WELDING MACHINE SETTER [facility] AND MS WALDRON [facility] CONFIRMED THERE ARE TWO RX WAITING TO BE PICKED UP BY PATIENT POSTED ON 10/15-GABAPENTIN 300 MG PO TID AND SEROQUEL 50 MG PO HS. Vital Signs - 24 hr 10/22/18 10/22/18 10/22/18 00:30 03:30 07:27 Temperature 97.8 F Pulse Rate 71 Respiratory 17 18 18 Rate Blood Pressure 95/66
--- NOTE | 2018-10-22 14:11 | PN ---
[facility] Progress Note Note: PT C/O SEVERE BACK PAIN AND REPORTS SHE IS ON GABAPENTIN AND WAS TAKING IT IN DETOX. PT REPORTS SHE WAS PRESCRIBED GABAPENTIN AT [facility] AND [facility] BUT DID NOT PICK IT UP BEFIRE COMING HERE FOR TREATMENT. THIS GLOVE PRINTER CALLED HER [facility] ON FILE AND SPOKE TO MS WALDRON [facility] WHO CONFIRMED THAT PT HAS TWO RX WAITING TO BE PICKED UP POST ON ..GABAPENTIN 300 MG PO TID AND SEROQUEL 50 MG PO HS. PT WILL NOT NEED [facility] RX UPON DISCHARGE AND WILL FOLLOW UP WITH HER [facility] TO LIFE SPECIALIST HER MEDICATIONS. Vital Signs - 24 hr 10/22/18 10/22/18 10/22/18 00:30 03:30 07:27 Temperature 97.8 F Pulse Rate 71 Respiratory 17 18 18 Rate Blood Pressure 95/66 Laboratory Tests 10/17/18 10/18/18 10/18/18 13:00 07:00 07:00 WBC 4.9 RBC 4.04 Hgb 12.7 Hct 37.5 MCV 92.8 MCH 31.5 MCHC 33.9 RDW 13.9 Plt Count 167 MPV 10.1 Sodium 143 Potassium 4.3 Chloride 108 H Carbon Dioxide 33 H Anion Gap 3 L BUN 9 Creatinine 0.8 Creat Clearance w eGFR > 60 Random Glucose 89 Calcium 8.7 Total Bilirubin 0.2 AST 9 L ALT 16 Alkaline Phosphatase 51 Total Protein 6.5 Albumin 3.6 Urine Color Connie Urine Appearance Turbid Urine pH 5.0 Ur Specific [place] 1.028 Urine Protein Negative Urine Glucose (UA) Negative Urine Ketones Negative Urine Blood Negative Urine Nitrite Negative Urine Bilirubin Negative Urine Urobilinogen Negative Ur Leukocyte Esterase Negative RPR Titer HIV 1&2 Antibody Screen HIV P24 Antigen 10/18/18 10/18/18 07:00 07:00 WBC RBC Hgb Hct MCV MCH MCHC RDW Plt Count MPV Sodium Potassium Chloride Carbon Dioxide Anion Gap BUN Creatinine Creat Clearance w eGFR Random Glucose Calcium Total Bilirubin AST ALT Alkaline Phosphatase Total Protein Albumin Urine Color Urine Appearance Urine pH Ur Specific [place] Urine Protein Urine Glucose (UA) Urine Ketones Urine Blood Urine Nitrite Urine Bilirubin Urine Urobilinogen Ur Leukocyte Esterase RPR Titer Nonreactive HIV 1&2 Antibody Screen Negative HIV P24 Antigen Negative CHRONIC BACK PAIN PLAN:PT HAS BEEN ON GABAPENTIN 300 MG PO TID FROM DETOX. CONTINUE GABAPENTIN DIRECTED IN REHAB FOLLOW UP WITH [facility] UPON DISCHARGE..
[2018-10-22] MEDS: MONTELUKAST NA 10 MG TABLET PO SCH (21:21)
[2018-10-22] MEDS: QUEtiapine FUMARATE 50 MG TABLET PO SCH (21:21)
[2018-10-22] MEDS: THIAMINE HCL 100 MG TABLET (FP) PO SCH (21:21)
[2018-10-22] MEDS: LIDOCAINE PATCH REMOVAL MC SCH (21:50)
[2018-10-22] MEDS ORDERED: GABAPENTIN 300 MG CAPSULE (FP) PO SCH (22:00)
[2018-10-23] MEDS: GABAPENTIN 300 MG CAPSULE (FP) PO SCH (06:18)
[2018-10-23] MEDS: CYCLOBENZAPRINE HCL 10 MG TABLET (FP) PO PRN (06:18)
[2018-10-23] MEDS: ALBUTEROL SO4 8 GM HFA INHALER IH PRN (06:42)
[2018-10-23 07:26] VITALS: BP 92/77; PULSE 84; TEMP 97.7
[2018-10-23] MEDS: VARENICLINE TARTRATE 1 MG TAB PO SCH (09:18)
[2018-10-23] MEDS: SULFAMETHOXAZOLE/TRIMETHOPRIM 800MG/160MG D.S. TABLET PO SCH (09:19)
[2018-10-23] MEDS: BUDESONIDE/FORMETEROL FUMARATE 80/4.5 mcg INHALER IH SCH (09:19)
[2018-10-23] MEDS: LIDOCAINE 5% TOPICAL PATCH TP SCH (09:19)
[2018-10-23] MEDS: PRENATAL VITAMINS W/ FOLIC ACID TABLET (FP) PO SCH (09:19)
[2018-10-23] MEDS: hydrOXYzine PAMOATE 50 MG CAPSULE (FP) PO PRN (09:20)
--- NOTE | 2018-10-23 16:14 | PN ---
[facility] Progress Note Note: PT DECLINED TO CONTINUE WITH REHAB AND WANTED TO LEAVE TODAY FOR PERSONAL REASONS. PT DECLINED FORMAL AFTERCARE REFERRAL PER COUNSELOR(SEE COUNSELOR'S REFERRAL NOTE). PT NOT OPEN TO THERAPEUTIC COMMUNICATION. ALERT O X 3. Vital Signs - 24 hr 10/23/18 10/23/18 10/23/18 00:30 03:30 07:25 Temperature 97.7 F Pulse Rate 84 Respiratory 18 18 18 Rate Blood Pressure 92/77 NAD MEDICALLY STABLE PLAN:PT SIGNED OUT AMA
== END 2018-10-23 09:38 | disposition home or self-care (01) | DRG 895 ==
LOC: YASAS 13:59 → Y6N 18:52 → Y3E 10-21 12:01
PROVIDERS: ADMIT Surgery; ATTEND Neuromusculoskeletal Medicine & OMM
PROC: HZ2ZZZZ Detoxification Services for Substance Abuse Treatment (ICD-10-PCS; principal; 2018-10-16)
PROC: HZ42ZZZ Group Counseling for Substance Abuse Treatment, Cognitive-Behavioral (ICD-10-PCS; 2018-10-21)
DX: F11.23 Opioid dependence with withdrawal (principal); F10.230 Alcohol dependence with withdrawal, uncomplicated; J45.909 Unspecified asthma, uncomplicated; M54.5 Low back pain; G89.29 Other chronic pain; E05.90 Thyrotoxicosis, unspecified without thyrotoxic crisis or storm; Z87.891 Personal history of nicotine dependence; Z88.0 Allergy status to penicillin; Z87.42 Personal history of other diseases of the female genital tract; Z91.5 Personal history of self-harm
CPT/HCPCS: 36415; 80053; 81003; 85027; 86593; 87389; Q0162